=== PATIENT | male | born 1945 | race Caucasian/White ===

== ENCOUNTER 2022-03-01 03:58 | Emergency (ER) | payer OTHER, SELFPAY ==
--- NOTE | ~2022-03-01 | CT_ITS ---
EXAMINATION: CTA chest PE protocol DATE: 03/01/2022 07:13 INDICATION: Shortness of breath. Chest pain. TECHNIQUE: Computed tomography angiography (CTA) of the chest was performed with 100 mL Omnipaque-350 intravenous contrast timed to evaluate the pulmonary arteries. Coronal maximum intensity projection 3D-reconstructions were created by the technologist. Automated exposure control and iterative reconst ruction technique were employed. The dose-length product was 553.02 mGy-cm. COMPARISON: Chest 2 views 03/01/2022 FINDINGS: There is mild emphysema. There is a cluster of nodules measuring up to 8 mm in right upper lobe. A calcified right lung nodule and calcified right hilar lymph nodes are consistent with old gra nulomatous disease. There is smooth septal thickening bilaterally, consistent mild pulmonary edema. T here is mild dependent atelectasis bilaterally. No pleural effusion. Cardiomegaly is noted. There are coronary artery calcifications. No pericardial effusion. There is no pulmonary embolus. Calcificatio ns in the liver and spleen are consistent with old granulomatous disease. There is mild thoracic spon dylosis. IMPRESSION: 1. No pulmonary embolus. 2. Mild pulmonary edema. 3. Cluster of nodules measuring up to 8 mm in right upper lobe, which may be infection or less likely malignancy. Noncontrast low-dose chest CT is recommended in 3 months. 4. Mild emphysema. 5. Cardiomegaly. Reviewed, dictated and finalized at location A. IMPRESSION: 1. No pulmonary embolus. 2. Mild pulmonary edema. 3. Cluster of nodules measuring up to 8 mm in right upper lobe, which may be in fection or less likely malignancy. Noncontrast low-dose chest CT is recommended in 3 months. 4. Mild emphysema. 5. Cardiomegaly.
--- NOTE | ~2022-03-01 | XR_ITS ---
EXAMINATION: XR chest 2V DATE: 03/01/2022 04:25 INDICATION: Chest pain. Shortness of breath. TECHNIQUE: Frontal and lateral views of the chest were obtained. COMPARISON: None. FINDINGS: A calcified right lung nodule and calcified right hilar lymph nodes are consistent with old granulomatous disease. There is mild scarring at the lung apices. No pleural effusion or pneumothora x. Cardiomegaly is noted. IMPRESSION: 1. Mild scarring at the lung apices. 2. Cardiomegaly. Reviewed, dictated and finalized at location A.
--- NOTE | 2022-03-01 04:00 | ECG_ITS ---
Measurements Intervals [place] Rate: 96 P: MO: 0 QRS: 9 QRSD: 105 T: 48 QT: 344 QTc: 435 Interpretive Statements ATRIAL FIBRILLATION VENTRICULAR PREMATURE COMPLEX ABNORMAL ECG NO PREVIOUS ECG AVAILABLE FOR COMPARISON Electronically Signed On 03-01-2022 7:56:40 CDT by Robe Jimenez D.O.
[2022-03-01 04:23] LABS: Basophils Percent Auto 0.2 % (0.2-1.2); Eosinophils Absolute Auto 0.3 K/mm3 (0-0.3); Eosinophils Percent Auto 2.5 % (0-4.4); Hematocrit 38.9 % (42.0-52.0); Hemoglobin 12.5 g/dL (14.0-18.0); Immature Granulocyte Absolute 0.08 K/mm3 (0.00-0.031); Immature Granulocyte Percent A 0.8 % (0-0.5); Lymphocytes Absolute Auto 1.09 K/mm3 (0.9-3.2); Lymphocytes Percent Auto 10.5 % (18.3-44.2); Mean Corpuscular HGB Conc 32.1 g/dl (32-36); Mean Corpuscular Hemoglobin 28.9 pg (26-34); Mean Platelet Volume 12.3 fl (7.4-10.4); Monocytes Absolute Auto 1.3 K/mm3 (0.1-0.6); Monocytes Percent Auto 12.5 % (2.6-8.5); Neutrophils Absolute Auto 7.6 K/mm3 (1.3-6.7); Neutrophils Percent Auto 73.5 % (45.5-73.1); Platelet Count Result 160 k/mm3 (150-375); Red Blood Count 4.32 M/mm3 (4.6-6.20); Red Cell Distribution Width 16.4 % (11.5-14.5); White Blood Count 10.4 K/mm3 (4.5-10.0)
[2022-03-01 04:29] VITALS: BP 125/67; PULSE 86; PULSE 88; RESP 19; TEMP 36.5; O2SAT 98
[2022-03-01 04:34] LABS: INR 1.2; Partial Thromboplastin Time 39.1 SECONDS (22.3-36.8); Prothrombin Time 14.9 Seconds (11.1-14.7)
[2022-03-01 04:45] LABS: Alanine Aminotransferase 15 U/L (6-50); Albumin Level 4.2 g/dL (3.5-5.1); Alkaline Phosphatase 72 U/L (38-126); Anion Gap 10 mmol/L (8-16); Aspartate Amino Transferase 16 U/L (17-59); Bilirubin,Total 0.4 mg/dL (0.2-1.3); Blood Urea Nitrogen 22 mg/dL (9-20); Calcium 9.2 mg/dL (8.4-10.2); Carbon Dioxide 23 mmol/L (22-30); Chloride 106 mmol/L (98-107); Estimated CRCL calculation 54 ml/min; Estimated Glomerular Filt Rate 59; Glucose 131 mg/dL (65-110); Lipase 86 U/L (23-300); Potassium 3.9 mmol/L (3.4-5.0); Sodium 139 mmol/L (137-145)
[2022-03-01 04:55] LABS: Troponin I < 0.012 ng/mL (0.000-0.034)
[2022-03-01] MEDS: ASPIRIN 81 MG CHEWABLE TABLET 324 MG PO (05:27)
--- NOTE | 2022-03-01 06:05 | ECG_ITS ---
Measurements Intervals [place] Rate: 94 P: AR: 0 QRS: 1 QRSD: 100 T: 33 QT: 347 QTc: 436 Interpretive Statements ATRIAL FIBRILLATION ABNORMAL ECG COMPARED TO ECG 03/01/2022 04:08:31 NO SIGNIFICANT CHANGES Electronically Signed On 03-01-2022 8:00:36 CDT by Robe Jimenez D.O.
[2022-03-01 06:36] LABS: NT Pro B Type Natriuretic Pept 1030 pg/mL (5-100)
--- NOTE | 2022-03-01 06:40 | ED.CHESTPAIN ---
HPI - Chest Pain General Chief Complaint: Chest Pain <Sandra Phoenix MD - Last Filed: 03/01/22 10:04> Stated Complaint: chest pain, sob <Sandra Phoenix MD - Last Filed: 03/01/22 10:04> Time Seen by Provider: 03/01/22 04:59 <Sandra Phoenix MD - Last Filed: 03/01/22 10:04> Source: patient and RN notes reviewed <Sandra Phoenix MD - Last Filed: 03/01/22 10:04> Mode of arrival: ambulatory <Sandra Phoenix MD - Last Filed: 03/01/22 10:04> Limitations: no limitations <Sandra Phoenix MD - Last Filed: 03/01/22 10:04> History of Present Illness HPI narrative: This is a 76 year old male with history of hypertension, afib who presents for evaluation of chest pain and sob. He returned from out of town yesterday after noon, and around 3 p m he developed chest heaviness with shortness of breath. His heaviness is intermittent and he is unsure of any exacerbating factors. He does reports shortness of breath with laying flat. He denies associated nausea, dizziness, fever, chills or diaphoresis. He has not taken any medication for his symptoms. Denies radiation of pain. He states pain is 3/10. Denies history of coronary artery disease. <Sandra Phoenix MD - Last Filed: 03/01/22 10:04> Related Data Allergies/Adverse Reactions: Allergies Allergy/AdvReac Type Severity Reaction Status Date / Time No Known Allergies Allergy Verified 03/01/22 04:27 <Sandra Phoenix MD - Last Filed: 03/01/22 10:04> Review of Systems Review of Systems: All systems reviewed & are unremarkable except as noted in HPI and below <Sandra Phoenix MD - Last Filed: 03/01/22 10:04> Constitutional: Constitutional: Denies chills, Denies fatigue and Denies fever(s) <Sandra Phoenix MD - Last Filed: 03/01/22 10:04> Cardiovascular: Cardiovascular: Reports chest pain, Denies radiating jaw, neck or arm pain and Denies slow heart rate <Sandra Phoenix MD - Last Filed: 03/01/22 10:04> Respiratory: Respiratory: Reports cough and Reports dyspnea <Sandra Phoenix MD - Last Filed: 03/01/22 10:04> Comments: orthopnea + <Sandra Phoenix MD - Last Filed: 03/01/22 10:04> Gastrointestinal: Gastrointestinal: Denies abdominal pain, Denies nausea and Denies vomiting <Sandra Phoenix MD - Last Filed: 03/01/22 10:04> PMFSH Past Medical History Medical History: Medical History (Updated 03/01/22 @ 08:46 by Mark Anthony Sinha MD) Atrial fibrillation Hypertension <Sandra Phoenix MD - Last Filed: 03/01/22 10:04> Social History Social History: Social History (Updated 03/01/22 @ 06:44 by Sandra Phoenix MD) Smoking packs per day: 0.5 Smoking cigarettes per day: 10.0 Smoking status: Current every day smoker Alcohol intake: current Alcohol use details: daily <Sandra Phoneix MD - Last Filed: 03/01/22 10:04> Exam Const: General: no acute distress and alert <Sandra Phoenix MD - Last Filed: 03/01/22 10:04> Nutritional Appearance: well nourished <Sandra Phoenix MD - Last Filed: 03/01/22 10:04> Orientation/consciousness: patient oriented x3 <Sandra Phoenix MD - Last Filed: 03/01/22 10:04> Limitations: no limitations <Sandra Phoenix MD - Last Filed: 03/01/22 10:04> HENMT: Head: normal to inspection <Sandra Phoenix MD - Last Filed: 03/01/22 10:04> Eyes: EOM: EOMs intact bilaterally <Sandra Phoenix MD - Last Filed: 03/01/22 10:04> Chest: Chest palpation & inspection: normal inspection of the chest <Sandra Phoenix MD - Last Filed: 03/01/22 10:04> Resp: Effort & Inspection: normal respiratory effort <Sandra Phoenix MD - Last Filed: 03/01/22 10:04> Auscultation: clear to auscultation bilaterally <Sandra Phoenix MD - Last Filed: 03/01/22 10:04> Cardio: Rate: regular rate <Sandra Phoenix MD - Last Filed: 03/01/22 10:04> Rhythm: abnormal rhythm <Sandra Phoenix MD - Last Filed: 03/01/22 10:04> Heart sounds: no murmurs
[2022-03-01 07:24] LABS: Troponin I 0.013 ng/mL (0.000-0.034)
--- NOTE | 2022-03-01 07:30 | PC.NURSE ---
REport given to THO Ochoa
[2022-03-01 07:32] VITALS: BP 132/77; PULSE 78; RESP 22; O2SAT 94
[2022-03-01 09:24] VITALS: BP 147/85; PULSE 76; RESP 19; O2SAT 98
== END 2022-03-01 09:26 | disposition left against medical advice (07) ==
PROVIDERS: Emergency Provider General Practice
DX: I50.9 Heart failure, unspecified (principal); R07.9 Chest pain, unspecified; I11.0 Hypertensive heart disease with heart failure; I48.91 Unspecified atrial fibrillation; F17.210 Nicotine dependence, cigarettes, uncomplicated; I49.3 Ventricular premature depolarization
CPT/HCPCS: 36415; 71046; 71275; 80053; 83690; 83880; 84484; 85025; 85610; 85730; 93005; 99284; A9270; Q9967